=== PATIENT | female | born 1970 | race Caucasian/White ===

== ENCOUNTER 2017-04-15 11:45 | Day surgery (SDC) | payer BC ==
[~2017-04-15] VITALS: Ht 165.1 cm; Wt 59.5 kg
[2017-04-15] VITALS (10 sets, daily range): BP systolic 98–132; BP diastolic 58–72; PULSE 66–86; RESP 12–23; Ht 165.1 cm; Wt 59.5 kg
[~2017-04-15 11:45] MED LIST: EPHEDrine SULFATE 50 MG/5 ML SYG ONE
[2017-04-15 12:52] LABS: BASOPHILS % 0.2 % (0.0-2.0); EOSINOPHILS # 0.1 10^3/ul (0.0-0.5); HEMATOCRIT 37.6 % (37.0-47.0); LYMPHOCYTES % 31.8 % (15.0-51.0); MEAN CORPUSCULAR HEMOGLOBIN 31.2 pg (29.0-33.0); MEAN CORPUSCULAR HGB CONC 34.6 g/dl (32.0-37.0); MEAN CORPUSCULAR VOLUME 90.2 fl (82.0-101.0); MEAN PLATELET VOLUME 9.9 fl (7.4-10.4); MONOCYTE # 0.3 10^3/ul (0.3-0.9); MONOCYTES % 5.3 % (0.0-11.0); NEUTROPHIL # 3.9 10^3/ul (1.6-7.5); NEUTROPHILS % 61.5 % (39.0-77.0); PLATELET COUNT 224 10^3/UL (140-415); RED BLOOD COUNT 4.17 10^6/ul (4.20-5.40); RED CELL DISTRIBUTION WIDTH 11.7 % (11.5-14.5); WHITE BLOOD COUNT 6.3 10^3/ul (4.8-10.8)
[2017-04-15 12:59] LABS: INR 0.95; PROTIME 12.7 Sec (12.2-14.2)
[2017-04-15 13:00] LABS: PARTIAL THROMBOPLASTIN TIME 26.7 Sec (25.0-35.0)
[2017-04-15] MEDS ORDERED: SOD CHLORIDE 0.9% 1,000 ML IV SCH (13:00)
[2017-04-15] MEDS ORDERED: CEFAZOLIN 2 GM/50 ML (PMX) 50 ML IVPB ONE (13:00)
[2017-04-15 13:17] LABS: ALBUMIN 4.6 g/dl (3.3-4.9); ALBUMIN/GLOBULIN RATIO 1.43; BILIRUBIN,INDIRECT 0.3 mg/dl (0-1.1); BILIRUBIN,TOTAL 0.3 mg/dl (0.2-1.3); TOTAL PROTEIN 7.8 g/dl (6.1-8.1)
[2017-04-15 13:19] LABS: CALCIUM 9.5 mg/dl (8.4-10.2); CREATININE 0.69 mg/dl (0.44-1.00)
[2017-04-15] MEDS ORDERED: BUPIVACAINE 0.5% (SDV) 30 ML INJ INJ ONE (15:32)
[2017-04-15] MEDS ORDERED: LIDOCAINE 2% (MDV) 20 ML INJ INJ ONE (15:32)
--- NOTE | 2017-04-15 15:38 | OPR ---
Date/Time of Note Date/Time of Note DATE: 04/15/17 TIME: 15:35 Operative Report Procedure Date: Apr 15, 2017 Preoperative Diagnosis right leg mass Postoperative Diagnosis same Operation Performed 1. wide local excision of right leg mass 6 cm incision and 6 x 3 cm mass 2. localized adjacent tissue transfer with the use of skin flaps 18 sq cm defect 3. therapeutic injection of subcutaneous marcaine Surgeon: Gilmer FORREST Specimens right leg mass Indications This is a 46-year-old female with a right leg mass. Patient requires surgical excision. Risks alternatives benefits in personal discussed the patient. Patient expressed understanding consents to the operation. Procedure Description Patient is taken to the OR and prepped and draped in usual sterile fashion. Surgical timeout was performed IV antibiotics given. Therapeutic subcutaneous injection of local anesthesia is placed above the mass. This area is thoroughly injected with local anesthesia. Incision is made over the mass. Initial inspection showed irregular borders and suspicious lesion. Wide local excision was performed by creating wide margins including the skin incision in elliptical fashion with a 15 blade. Dissection cautery was carried onto the mass was circumferentially excised to the deeper tissues. There is good hemostasis tissue markings are short superior long lateral skin anterior were placed on the mass. Due to the large tissue defect localized adjacent tissue transfer with these of skin flaps was performed multilayer closure of interrupted 2-0 Vicryl and skin rudy. Dry dressings were applied. Gilmer FORREST Apr 15, 2017 15:38
[2017-04-15] MEDS ORDERED: PROCHLORPERAZINE 10 MG INJ IV PRN (16:00)
[2017-04-15] MEDS ORDERED: HYDROmorphONE (0.2 MG/ML) 10ML SYG IV PRN ×3 (16:00)
[2017-04-15] MEDS ORDERED: HYDROCODONE/APAP (5/325) TAB PO ONE (16:00)
[2017-04-15] MEDS ORDERED: MEPERIDINE 25 MG INJ IV PRN (16:00)
[2017-04-15] MEDS ORDERED: DIPHENHYDRAMINE 50 MG INJ IV PRN (16:00)
[2017-04-15] MEDS ORDERED: OXYCODONE/ACETAMINOPHEN (5/325) TAB PO PRN (16:00)
[2017-04-15] MEDS ORDERED: FENTAnyl 50 MCG/ML VIAL IV PRN ×3 (16:00)
[2017-04-15] MEDS ORDERED: ONDANSETRON 4 MG INJ IV PRN (16:00)
[2017-04-15] MEDS ORDERED: MIDAZOLAM 1 MG/ML 2 ML INJ ONE (18:03)
[2017-04-15] MEDS ORDERED: LIDOCAINE 2% (SDV) 5 ML INJ ONE (18:03)
[2017-04-15] MEDS ORDERED: CEFAZOLIN 1 GM INJ ONE (18:03)
[2017-04-15] MEDS ORDERED: PROPOFOL 20 ML ONE (18:03)
[2017-04-15] MEDS ORDERED: DEXAMETHASONE 4 MG/ML 1 ML INJ ONE (18:03)
[2017-04-15] MEDS ORDERED: LIDOCAINE 2% (MDV) 20 ML INJ ONE (18:03)
[2017-04-15] MEDS ORDERED: KETOROLAC 30 MG INJ ONE (18:03)
[2017-04-15] MEDS ORDERED: FENTAnyl 50 MCG/ML VIAL ONE (18:03)
[2017-04-15] MEDS ORDERED: BUPIVACAINE 0.5% (SDV) 30 ML INJ ONE (18:03)
[2017-04-15] MEDS ORDERED: ONDANSETRON 4 MG INJ ONE (18:03)
== END 2017-04-15 17:17 | disposition home or self-care (01) ==
LOC: SDS 11:45
PROVIDERS: ATTEND Surgery
DX: D23.71 Other benign neoplasm of skin of right lower limb, including hip (principal)
CPT/HCPCS: 14021; 80053; 84703; 85025; 85610; 85730; J0690; J1100; J1885; J2250; J2405; J3010